=== PATIENT | male | born 1980 | race African-American/Black ===

== ENCOUNTER 2016-12-19 18:43 | Inpatient (IN) ==
[2016-12-19] MEDS ORDERED: VANCOMYCIN 1 GM/NS 1 GM/250 ML IVPB IV ONE (19:30)
[2016-12-19] MEDS ORDERED: MORPHINE IV ONE (19:30)
[2016-12-19] MEDS ORDERED: ZOFRAN IV ONE (19:30)
[2016-12-19] MEDS ORDERED: CLINDAMYCIN 900 MG/NS 900 MG/50 ML IVPB IV ONE (19:30)
--- NOTE | 2016-12-19 19:52 | PROVIDER DOCUMENTATION ---
HPI-Rash/Wound/ReCheck - General Chief Complaint: Rash Stated Complaint: RASH Time Seen by Provider: 12/19/16 18:51 Source: patient Allergies/Adverse Reactions: Allergies Allergy/AdvReac Type Severity Reaction Status Date / Time ibuprofen Allergy SHORTNESS Verified 12/14/16 00:40 OF BREATH metronidazole [From Flagyl] Allergy HIVES Verified 12/14/16 00:40 Home Medications: Home Medication List Medication Instructions Recorded Confirmed Last Taken Type Losartan/Hydrochlorothiazide 1 each PO DAILY #30 tablet 12/14/16 12/19/16 Unknown Rx [Losartan-Hctz 100-12.5 mg Tab] Terbinafine [Lamisil] 250 mg PO DAILY #10 tablet 12/14/16 12/19/16 12/19/16 09: 30 Rx - History of Present Illness-Dermatology Nature of Presenting Problem: Pt is a 36y/o AAM who presents to the ED today c/o pruritic, painful rash on BUE , BLE, face, and trunk. He has been seen 3 times in the last month for this condition, and given a variation of abx including Bactrim, Keflex, and terbinafine. Pt reports that the rash started on his R forearm and has continued to spread. He states that he first noted the rash on his face yesterday, including areas surrounding his eyes and mouth. He additionally states that the rash has spread the length of his L arm in the last 3-4 hours. He reports fever throughout the day. A diffuse, scaly, erythematous rash is noted. Location: reports: other (see hpi) Quality: reports: itchy, painful Severity: reports: moderate Onset/Duration: reports: other (see hpi) Timing: reports: still present, getting worse Context/Associated Symptoms: reports: rash Similar Symptoms Previously?: Yes Recently seen or treated by another doctor?: Yes Review of Systems - Adult - REVIEW OF SYSTEMS - ADULT Constitutional: reports: fever. denies: chills, fatique, night sweats Eyes: reports: no symptoms reported. denies: discharge, dry eyes Ears, Nose, Mouth & Throat: reports: no symptoms reported. denies: ear discharge, ear pain Cardiovascular: reports: no symptoms reported. denies: chest pain, edema Respiratory: reports: no symptoms reported. denies: chronic cough, cough Gastrointestinal: reports: no symptoms reported. denies: abdominal pain, hematemesis Genitourinary: reports: no symptoms reported. denies: dysuria, discharge Musculoskeletal: reports: no symptoms reported. denies: bone pain, back pain Integumentary: reports: see HPI, itching, rash. denies: hives, hair loss Neurological: reports: no symptoms reported. denies: ataxia, dizziness/vertigo Psychiatric: reports: no symptoms reported. denies: anxiety, anti-depressant use Endocrine: reports: no symptoms reported Hematologic/Lymphatic: reports: no symptoms reported Allergic/Immunologic: reports: no symptoms reported All Other Systems: Reviewed and Negative Past History - Adult - PAST MEDICAL HISTORY-ADULT Review of Records: reports: Old Records Reviewed, Nursing Assessment Review, Medications Reviewed, Social history reviewed & non-contributory. Major Childhood Illnesses: reports: denies history Cardiovascular: reports: HTN Respiratory: reports: denies history Gastrointestinal: reports: denies history Obstetrical/Gynecological: reports: denies history Genitourinary: reports: denies history Musculoskeletal: reports: denies history Neurological: reports: denies history Endocrine/Immune: reports: denies history Other Conditions: reports: denies history - PRIOR SURGERIES/PROCEDURES Surgical/Procedure History: reports: orthopedic (extremity) - IMMUNIZATION STATUS Childhood Immunizations: See Nurse Assessment Flu Vaccine: See Nurse Assessment - FAMILY HISTORY Family History: reviewed, not pertinent Physical Exam-General - PHYSICAL EXAM-ADULT Initial Vital Signs Reviewed: Yes - CONSTITUTIONAL General Appearance: appears well, alert, no apparent distress - EYES Eyes: PERRL/EOMI, pink conjunctivae - HEAD, EARS, NOSE, MOUTH & THROAT HENMT: normocephalic/atraumatic, moist mucous membranes, normal ENT inspection - NECK Neck: supple, normal inspection - RESPIRATORY Respiratory: chest non-tender, lungs clear, normal breath sounds - CARDIOVASCULAR Cardiovascular: normal peripheral pulses, regular rate, rhythm - GASTROINTESTINAL (ABDOMEN) Abdominal Exam: normal bowel sounds, non tender, soft - LYMPHATIC Lymphatic: no adenopathy - MUSCULOSKELETAL Back Exam: normal inspection, no CVA tenderness, no vertebral tenderness Extremity: normal range of motion, non-tender - SKIN Integumentary: normal turgor, warm/dry, erythema, rash (moderate scaly, erythematous rash, worse on R arm but spreading throughout), tenderness - NEUROLOGIC Neurologic: grossly normal, no motor/sensory deficits - PSYCHIATRIC Psych/Mental Status: normal mood/affect, normal thought content, normal thought process, oriented x 3 Progress - PLAN OF CARE/RESULTS Progress/Plan/Lab Results: Vital Signs - 8 hr 12/19/16 18:45 Temperature 98.7 F Pulse Rate 87 Respiratory Rate 18 Blood Pressure 164/103 O2 Sat by Pulse Oximetry 100 Orders Category Date Time Status Saline Loc NOW Care 12/19/16 19:18 Active CBC WITH ELECTRONIC DIFF [HEME] Stat Lab 12/19/16 19:18 Uncollected COMPREHENSIVE METABOLIC PANEL [CHEM] Stat Lab 12/19/16 19:18 Uncollected LACTATE, PLASMA [CHEM] Stat Lab 12/19/16 19:18 Uncollected Clindamycin 900 mg/Ns Med 12/19/16 19:30 Discontinued 900 mg in 50 ml IV NOW Morphine Med 12/19/16 19:30 Discontinued 4 mg IV NOW ONE Ondansetron [Zofran] Med 12/19/16 19:30 Discontinued 4 mg IV NOW ONE Vancomycin 1 gm/Ns Med 12/19/16 19:30 Discontinued 1 gm in 250 ml IV NOW - CONSULTS/PCP/HOSPITALIST Notification #1 *Consult/PCP/Hospitalist*: Hospitalist service Time Discussed: 20:52 Consult Disposition: Admit Departure - Departure Time of Disposition Decision: 20:53 DIAGNOSIS: Staph skin infection Disposition: ADMITTED INPATIENT 09 Certified Medical Emergency: Emergent Condition: Good Referrals and Follow-Ups: None,PCP [Primary Care Provider] - - Critical Care Note This patient required my direct & personal management of CC.: No Attestation - Physician/ MANOLO Attestation Patient care was provided by Advanced Practice Provider:: Yes Advanced Practice Provider:: Pj Veloz Advanced Practice Provider documentation review:: The Mid-level provider documentation, treatment plan and medical decision making was reviewed by the physician who agrees with all treatment and medical decision making by the P.
[2016-12-19 21:17] LABS: BASO% 0.3 % (0.0-0.8); EOS# 0.37 X1000 (0.0-0.7); EOS% 5.7 % (0.0-10.0); HEMATOCRIT 41.1 % (42.0-52.0); HEMOGLOBIN 13.6 g/dL (14.0-18.0); LYMPH# 2.28 X1000 (1.2-3.4); LYMPH% 35.2 % (20.5-51.1); MANUAL DIFF NEEDED? NO; MCH 24.2 PG (27-31); MCHC 33.1 g/dL (33-37); MCV 73.1 FL (81-99); MONO# 0.48 X1000 (0.11-0.59); MONO% 7.4 % (1.7-9.3); MPV 11.9 FL (7.4-10.4); NEUT% 51.4 % (42.2-75.2); PLT 170 X1000 (130-400); RBC 5.62 XMIL (4.7-6.1)
[2016-12-19 21:30] LABS: AGAP 14; ALBUMIN 4.6 g/dL (3.5-5.0); ALKALINE PHOSPHATASE 75 U/L (32-122); BUN 11 mg/dL (8-22); CALCIUM 9.3 mg/dL (8.8-10.2); CHLORIDE 103 mmol/L (98-107); COSMO 281; GOT 15 U/L (10-34); GPT 9 U/L (10-44); POTASSIUM 3.7 mmol/L (3.5-5.1); SODIUM 142 mmol/L (136-145); TCO2 25 mmol/L (25-35); TOTAL BILIRUBIN 0.24 mg/dL (0.20-1.00); TOTAL PROTEIN 8.1 g/dL (6.3-8.3)
[2016-12-19 22:20] LABS: URINE MICRO REVIEW NEEDED? NO; URINE SOURCE VOIDED
[2016-12-19 22:24] LABS: BILIRUBIN URINE NEGATIVE (NEGATIVE); BLOOD URINE NEGATIVE (NEGATIVE); COLOR YELLOW; GLUCOSE URINE NEGATIVE (NEGATIVE); LEUKOCYTES URINE NEGATIVE (NEGATIVE); NITRITE URINE NEGATIVE (NEGATIVE); PH URINE 6.5; PROTEIN URINE 50 mg/dL (NEGATIVE); SP GRAVITY URINE 1.035; TURBIDITY URINE CLEAR (CLEAR); UROBILINOGEN URINE 8 mg/dL (NORMAL)
[2016-12-19 22:25] LABS: UR EPITHELIAL CELLS <10 /HPF (<10); URINE BACTERIA NEGATIVE /HPF; URINE RBC <10 /HPF (<10); URINE WBC <10 /HPF (<10)
[2016-12-19 22:47] LABS: UR AMPHETAMINES QUAL NONE DETECTED (NONE DETECT); UR BARBITUATES QUAL NONE DETECTED (NONE DETECT); UR BENZODIAZEPIN QUAL NONE DETECTED (NONE DETECT); UR CANNABINOIDS QUAL PRESUMPTIVE POSITIVE (NONE DETECT); UR COCAINE QUAL NONE DETECTED (NONE DETECT); UR METHADONE QUAL NONE DETECTED (NONE DETECT); UR OPIATES QUAL PRESUMPTIVE POSITIVE (NONE DETECT); UR OXYCODONE QUAL NONE DETECTED (NONE DETECT); UR PCP QUAL NONE DETECTED (NONE DETECT)
[2016-12-19] MEDS ORDERED: TYLENOL PO PRN (23:39)
[2016-12-19] MEDS ORDERED: ZOFRAN IV PRN (23:39)
[2016-12-19] MEDS ORDERED: VANCOMYCIN IV PER PHARMACY MISC SCH (23:39)
[2016-12-20] MEDS: NORVASC PO SCH ×2 (00:56→20:17)
[2016-12-20] MEDS: PROTONIX IV SCH (00:57)
[2016-12-20] MEDS: SOLU-MEDROL IV SCH ×2 (00:57→11:20)
[2016-12-20] MEDS: NS 1,000 ML IV SCH ×2 (00:57→11:20)
[2016-12-20] MEDS ORDERED: VANCOMYCIN 1,500 MG in NS 250 ML IV ONE (03:00)
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
[2016-12-20] MEDS: CLINDAMYCIN 600 MG/NS 600 MG/50 ML IVPB IV SCH ×2 (06:24→13:50)
[2016-12-20 07:00] LABS: MANUAL DIFF NEEDED? NO
[2016-12-20 07:18] LABS: AGAP 12; BUN 9 mg/dL (8-22); CALCIUM 8.8 mg/dL (8.8-10.2); CHLORIDE 107 mmol/L (98-107); COSMO 277; POTASSIUM 4.5 mmol/L (3.5-5.1); SODIUM 139 mmol/L (136-145); TCO2 20 mmol/L (25-35)
[2016-12-20 07:34] LABS: BASO% 0.2 % (0.0-0.8); EOS# 0.07 X1000 (0.0-0.7); EOS% 1.1 % (0.0-10.0); HEMATOCRIT 42.1 % (42.0-52.0); HEMOGLOBIN 13.7 g/dL (14.0-18.0); LYMPH# 1.42 X1000 (1.2-3.4); LYMPH% 21.6 % (20.5-51.1); MCH 23.9 PG (27-31); MCHC 32.5 g/dL (33-37); MCV 73.5 FL (81-99); MONO# 0.13 X1000 (0.11-0.59); MPV 11.7 FL (7.4-10.4); NEUT% 75.1 % (42.2-75.2); PLT 186 X1000 (130-400); RBC 5.73 XMIL (4.7-6.1)
[2016-12-20] MEDS ORDERED: ELIMITE 5% CREAM TOP ONE (08:19)
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
--- NOTE | 2016-12-20 19:37 | PROGRESS NOTE ---
DATE: 12/20/2016 SUBJECTIVE: Mr. Mahajan is a 36-year-old admitted this morning. Presented to the ER with complaints of worsening rash. Patient is seen in the ER, a total of 3 previous times at [facility], same rash. Initially she was given Bactrim, but this rash did not improve. With the next ER visit, he was given Keflex in the visit and also this visit a wound culture was obtained which showed the patient was positive for Staphylococcus hemolyticus. He was seen for a 3rd time, given Lamisil and Bactrim, but his rash continued to worsen. It started on the right forearm, single vesicle, then states that it popped and it was draining clear serous liquid and began to spread. The patient next worst place was in the left axilla. Itches quite badly. The rash has spread in the left arm and over other parts of his body, bilateral arms, bilateral upper thighs, of course it has been on his genital and buttock area. He has it on his face, neck and bilateral ears. The only place not affected was his back, bilateral lower extremities from the knees down. Appears to be erythematous vesicular diffuse rash pruritic in nature. Denies headache, lightheadedness, shortness of breath, cough. No pets. No change in diet. No exotic foods. He cannot connect any new solvents or chemicals. No exposure to poison lesley or poison oak. Given initial dose of clindamycin, vancomycin IV according to the previous wound culture and he was admitted. MEDICATIONS: He takes medication for high blood pressure, losartan/hydrochlorothiazide 100/12.5 one a day. Though he is not taking this regularly, he did have a dose a couple of days ago. The patient states he is about the same. This rash itches. Dr. Peñaloza has ordered Elimite cream to put on it, wash it off in 9-14 hours. The patient bedding and gown to be changed. It may stop some itching. Needs some cream in a week. So far today the feels about the same. OBJECTIVE: Vital signs: Temperature 98.4 degrees, pulse 68, respirations 22, blood pressure 142/88. Eyes: Pupils are equal. Respiratory: Lungs are clear. Cardiovascular: Regular rhythm and rate without murmur or S3. : Good urine output. REVIEW OF LABORATORY: White count 6580, hematocrit 42, platelet count 186,000. Chemistries unremarkable. ASSESSMENT/PLAN: Pruritic rash, questionable scabies. Going to be treated with Elimite shampoo and cream. So he will put Elimite cream on, wash off in 9-14 hours. After it is washed off, the patient will have bedding and gown changed and using topical cream. He could use calamine. His orders reviewed he is to stop the vancomycin and is on clindamycin right now. Vancomycin is 1900 mg q.18 hours, clindamycin 500 mg IV q.8, methylprednisone 40 mg q.12 hours. cc: Ron Daly MD
[2016-12-20] MEDS: VANCOMYCIN 1,900 MG in NS 500 ML IV SCH (20:17)
[2016-12-20] MEDS: BENADRYL PO PRN (20:17)
[2016-12-21] MEDS: CLINDAMYCIN 600 MG/NS 600 MG/50 ML IVPB IV SCH ×3 (00:17→17:17)
[2016-12-21] MEDS: SOLU-MEDROL IV SCH ×3 (00:18→21:53)
[2016-12-21] MEDS: PROTONIX IV SCH ×2 (00:18→21:53)
[2016-12-21] MEDS: BENADRYL PO PRN ×3 (00:23→21:53)
--- NOTE | 2016-12-21 13:42 | PROGRESS NOTE ---
DATE: 12/21/2016 SUBJECTIVE: Mr. Mahajan feels about the same. He has some lichenification on the right arm and left axilla where he has had the rash for some time. Still very pruritic, just small scattered vesicles on the medial arms on both sides. Also, his left chest and on his legs; it does not appear to have changed. OBJECTIVE: Vital Signs: He remains afebrile. Temp 98.3 degrees, pulse 67, respiration rate 14, blood pressure 152/102. Lungs: Clear in all lung leonard. Cardiovascular exam: Regular rhythm and rate without murmur or S3. Abdomen: Soft. Skin: Warm and dry. LABS: White count 6580, hematocrit 42, platelet count 186,000. Chemistry: Sodium 139, potassium 4.5, chloride 107, bicarbonate 20, BUN 9, creatinine 1.1. ASSESSMENT AND PLAN: Pruritic rash, questionable. We are treating him for possible scabies; not sure as this also could be contact dermatitis. It does not appear any worse. He got some Elimite cream and washed it. He is on intravenous Solu-Medrol. We are treating with antibiotics, although I do not feel this is probably a bacterial infection. Dr. Peñaloza is following as well. Continue present measures, topical care. He did report that he feels like it is contagious because his started breaking out in a similar type rash recently. cc: Ron Daly MD
[2016-12-21] MEDS: VANCOMYCIN 1,900 MG in NS 500 ML IV SCH (15:26)
[2016-12-21] MEDS: SODIUM CHLORIDE 0.9% INJ SCH (21:53)
[2016-12-21] MEDS: NORVASC PO SCH (21:53)
[2016-12-22] MEDS: SOLU-MEDROL IV SCH ×3 (01:38→20:55)
[2016-12-22] MEDS: PROTONIX IV SCH ×2 (01:38→20:48)
[2016-12-22] MEDS: CLINDAMYCIN 600 MG/NS 600 MG/50 ML IVPB IV SCH ×3 (01:56→17:50)
[2016-12-22] MEDS: VANCOMYCIN 1,900 MG in NS 500 ML IV SCH ×2 (09:44→21:02)
[2016-12-22] MEDS: BENADRYL PO PRN ×2 (16:21→20:49)
[2016-12-22] MEDS ORDERED: MISC. PHARMACY COMMUNICATION SCH (16:30)
--- NOTE | 2016-12-22 17:03 | PROGRESS NOTE ---
DATE: 12/22/2016 PRESENT ILLNESS: The patient has a pruritic rash. The patient reports to me today that his girlfriend with whom he lives is also breaking out in a rash. I still think it is possible that the patient has scabies. MEDICATION: The patient had permethrin cream put on him yesterday and then washed off. PHYSICAL EXAMINATION: Vital Signs: Temperature is 99, pulse 73, respirations 14, blood pressure 162/107. Generally: This is a somewhat ill-appearing, young male. He is in no acute distress. Lungs: Clear to auscultation. Cardiovascular: Regular heart rate. Abdomen: Soft and nontender. Neurologic: Patient is alert. He can move his extremities. There is no tremor. INTEGUMENT: Patient has a diffuse rash. There are some papular lesions. Some areas where there is scaling of the skin. Other areas appear excoriated. LABS AND X-RAYS: Patient's CBC shows a white count of 6580, hemoglobin 13.7, and platelet count 186,000. Creatinine is 1.1. GFR is greater than 60. Liver function studies are normal. ASSESSMENT AND PLAN: As mentioned above, I think the patient does have scabies. What I am going to do is give him 1 dose of Ivermectin. Also, I put a consult in for surgery to do a skin biopsy with it being sent to pathology for examination. When patient is discharged he can get OTC RID and use it for him and his family with whom he lives. COMORBIDITY: The patient's comorbidity, I do not really find any comorbidity in this patient other than he seems live in a situation where there is a relatively large amount of people in a small space. cc: Da Peñaloza MD MTDD
[2016-12-22] MEDS: SODIUM CHLORIDE 0.9% INJ SCH (20:48)
[2016-12-22] MEDS: NORVASC PO SCH (20:49)
[2016-12-23] MEDS: CLINDAMYCIN 600 MG/NS 600 MG/50 ML IVPB IV SCH (06:42)
[2016-12-23 07:55] VITALS: BP 171/104
[2016-12-23] MEDS ORDERED: NON-FORMULARY MED PO ONE (09:00)
[2016-12-23] MEDS: SOLU-MEDROL IV SCH (09:53)
[2016-12-23] MEDS: VANCOMYCIN 1,900 MG in NS 500 ML IV SCH (09:53)
--- NOTE | 2016-12-23 15:11 | DISCHARGE SUMMARY ---
ADMISSION DATE: 12/19/2016 DISCHARGE DATE: 12/23/2016 HISTORY AND HOSPITAL COURSE: This is a 36-year-old male, presented to the emergency room on 12/19/2016 with a worsening rash. Patient has been seen in the emergency room a total of 3 previous times at [place] for the same rash. Initially he was given Bactrim for his rash and it did not improve. On his next ER visit he is given Keflex. Also at the visit wound culture was obtained and the patient was positive for Staphylococcus hemolyticus. He was seen a 3rd time and given Lamisil and Bactrim, though his rash continued to worsen. He describes the rash as starting in the right medial forearm and there was a single vesicle which I think he burst and then there was some clear serous fluid by his description that spread. Patient then began scratching and itching quite badly in that area and the rash seemed to spread. He has small papules that are maybe 1 mm to 3 mm at the most and he has them now on the left arm as well but more pronounced on the right arm with lichenified skin from where he scratched that area on the medial arm. He has another patch in the left lateral axilla but he has lesions on his legs as well, very pruritic. He denies fever or chills. No oral mucosa lesions. No genital ulcers or lesions. He denies any other symptomatology. Once again, no fever or chills. No gross hematuria. No change in bowels. He has no pets. He has not been out of the country. He lives with, I think, his girlfriend and his child, I cannot remember if it is a son or daughter, and they have had no health issues. Dr. Peñaloza was involved. It does not look like a bacterial infection and I felt like it was either a contact dermatitis which would be rather unusual or this was scabies. So we treated him with Elimite cream and gave him some topical creams to help. The lichenified skin appeared to improve. Basically I think it is not as irritating; he is not scratching as much. We had decided to get a skin biopsy to look for anything else, but it really does not fit other rashes. I felt he could probably go home on 12/23/2016. I am going to give another prescription for Elimite cream to use again at home and then some topical cream to put on it. We did have him on some methylprednisone while he was here, 40 mg IV q.12. We also had him on clindamycin and vancomycin but once again, do not think this is a bacterial infection. We put him on Benadryl 25 mg p.o. q.4-6 hours for the itching. He needs to follow up with his family care physician in a couple weeks. cc: Ron Daly MD
== END 2016-12-23 16:22 | disposition home or self-care (01) ==
LOC: ED 18:43 → 3N 23:13 → SUATTDRO 23:13
PROVIDERS: ATTEND Emergency Medicine